=== PATIENT | male | born 1990 | race Caucasian/White ===

== ENCOUNTER 2016-11-07 13:00 | Emergency (ER) | payer OTHER ==
[2016-11-07] MEDS ORDERED: BUFFERED LIDOCAINE 10 ML SYRINGE ONE (13:51)
== END 2016-11-07 14:48 | disposition home or self-care (01) ==
DX: S61.012A Laceration without foreign body of left thumb without damage to nail, initial encounter (principal); W31.2XXA Contact with powered woodworking and forming machines, initial encounter; Y92.018 Other place in single-family (private) house as the place of occurrence of the external cause